=== PATIENT | female | born 1945 | race Caucasian/White ===

== ENCOUNTER 2016-09-17 17:02 | Inpatient (IN) | payer OTHER, MEDICARE ==
[~2016-09-17] VITALS: Ht 167.6 cm; Wt 77.0 kg
[2016-09-19] MEDS ORDERED: ARTH650T PO (15:55)
[2016-09-19] MEDS ORDERED: M2 M100C PO (15:55)
[2016-09-19] MEDS ORDERED: GLUC1CAP16 PO (15:55)
[2016-09-23] MEDS: CHLORHEXIDINE GLUCONATE 4% SOLN 120 ML BTL TOPICAL SCH (06:15)
[2016-09-23] MEDS ORDERED: VANCOMYCIN 1000 MG/NS 250 ML (for <70 kg) IV SCH ×2 (06:15)
[2016-09-23] MEDS ORDERED: TRANEXAMIC PERI-ARTICULAR 3,000 MG/NS 100 ML P-ARTICULR SCH ×2 (06:15)
[2016-09-23] MEDS ORDERED: TRANEXAMIC ACID IV SCH ×2 (06:15)
[2016-09-23] MEDS ORDERED: DEXAMETHASONE SOD PHOS 20 MG/5 ML VIAL IV PRN (06:15)
[2016-09-23] MEDS ORDERED: ROPIVACAINE PERI-ARTICULAR INJECTION. P-ARTICULR SCH ×5 (06:15)
[2016-09-23] MEDS ORDERED: ceFAZolin 2 GM PREMIX 50 ML IV SCH (06:15)
[2016-09-23] MEDS: POVIDONE IODINE 7.5% SCRUB 118 ML BOTTLE TOPICAL SCH (06:15)
[2016-09-23] MEDS ORDERED: SODIUM CHLORID 0.9% 500 ML IV PRN (06:30)
[2016-09-23] MEDS ORDERED: INSULIN HUMAN REGULAR 1,000 UNITS/10 ML VIAL SQ PRN (06:30)
[2016-09-23] MEDS ORDERED: METOPROLOL TARTRATE 25 MG TAB PO PRN (06:30)
[2016-09-23] MEDS ORDERED: LACTATED RINGER'S 1000 ML IV PRN (06:30)
[2016-09-23] MEDS ORDERED: ZOLPIDEM TARTRATE 5 MG TAB PO PRN (06:45)
[2016-09-23] MEDS ORDERED: MORPHINE SULFATE 4 MG/ML INJ IV PUSH PRN (06:45)
[2016-09-23] MEDS ORDERED: diphenhydrAMINE HCL 50 MG/ML VIAL IV PRN (06:45)
[2016-09-23] MEDS ORDERED: ALUMINUM/MAGNESIUM/SIMETH 30 ML CUP PO PRN (06:45)
[2016-09-23] MEDS ORDERED: Post-op Orders (for Pharmacy) MISC XX ONE (06:45)
[2016-09-23] MEDS ORDERED: BISACODYL 10 MG SUPP RECTAL PRN (06:45)
[2016-09-23] MEDS ORDERED: NALOXONE HCL 0.4 MG/ML AMP IV PRN (06:45)
[2016-09-23] MEDS ORDERED: ENOX40P SQ (06:47)
[2016-09-23] MEDS ORDERED: HYDR-3288 PO (06:47)
[2016-09-23] MEDS ORDERED: ASPI81CH37 CHEW (06:48)
[2016-09-23] MEDS ORDERED: ASPI81CH3 CHEW (06:50)
[2016-09-23] MEDS: POVIDONE IODINE 5% (ANTISEPSIS KIT) 4 APPLICATIONS EACH NARE PRN ×2 (07:11→07:33)
[2016-09-23] MEDS: CHLORHEXIDINE GLUCONATE 2 % 1 PACK (2 CLOTHS) TOPICAL PRN ×2 (07:11→07:34)
[2016-09-23 07:27] VITALS: BP 127/69; PULSE 62; RESP 16; TEMP 98.7; O2SAT 99
[2016-09-23] MEDS ORDERED: ESSE250T PO (07:40)
[2016-09-23] MEDS: ROPIVACAINE PERI-ARTICULAR INJECTION. P-ARTICULR SCH ×10 (08:00→10:02)
[2016-09-23] MEDS: TRANEXAMIC PERI-ARTICULAR 3,000 MG/NS 100 ML P-ARTICULR SCH ×4 (08:00→10:00)
[2016-09-23] MEDS: TRANEXAMIC ACID IV SCH ×4 (08:00→08:59)
[2016-09-23] MEDS ORDERED: GENTAMICIN SULFATE 80 MG/2 ML VIAL ONE (08:14)
[2016-09-23] MEDS ORDERED: MIDAZOLAM HCL 2 MG/2 ML VIAL ONE ×2 (08:26→10:47)
[2016-09-23] MEDS ORDERED: FAMOTIDINE 20 MG/2 ML VIAL ONE (08:27)
[2016-09-23] MEDS ORDERED: SODIUM CHLORIDE 0.9% FLUSH 10 ML FLUSH IV FLUSH PRN (09:00)
[2016-09-23] MEDS: SODIUM CHLORIDE 0.9% FLUSH 10 ML FLUSH IV FLUSH SCH ×2 (09:00→22:26)
[2016-09-23] MEDS: SODIUM CHLOR 0.9% 1000 ML INJ 1,000 ML IV SCH ×2 (11:00→22:22)
--- NOTE | 2016-09-23 11:13 | MP ---
cc: DONALD ALEXANDER M.D. DATE OF SURGERY: 09/23/2016 PREOPERATIVE DIAGNOSIS Left knee osteoarthritis. POSTOPERATIVE DIAGNOSES Left knee osteoarthritis. PROCEDURE Left total knee arthroplasty. SURGEON Dr. Donald Alexander ACID SUPERVISOR Donald Mckenzie PA-C ANESTHESIA Spinal with a femoral nerve block. ESTIMATED BLOOD LOSS 50 cc. TOURNIQUET TIME 43 minutes at 250 mmHg. COMPLICATIONS None. IMPLANTS USED DePuy Attune size 5 posterior stabilized femoral component, size 5 rotating platform tibia baseplate, size 10 mm polyethylene tibial insert, size 38 mm patella. JUSTIFICATION The patient is a 71-year-old female with a history of severe end-stage osteoarthritis involving the left knee. She had severe disabling pain with standing, walking, ambulation, weightbearing activities and even severe pain at rest. She has failed greater than three months of nonoperative conservative treatment to include medication therapy injections, ambulatory assisted aids, home exercise program, activity modification and weight loss attempts. X-rays of the left knee revealed severe end-stage osteoarthritis, egez-ox-poan joint space narrowing, subchondral sclerosis, subchondral cysts, osteophyte formation and varus deformity. The patient was counseled as to the risks, benefits and alternatives to a total knee arthroplasty. The risks discussed include but are not limited to anesthesia, bleeding, infection, damage to nerves and blood vessels, pain, stiffness, failure of components, blood clots, pulmonary embolism and even . The patient's pain is severe. She favored the benefits over the risks and did wish to proceed with surgery. PROCEDURE IN DETAIL Written consent was obtained. The patient was identified by name, taken to the operating room and placed supine on the operating table. Spinal anesthesia was administered as well as a femoral nerve block. The patient was administered two grams of IV Ancef and one gram of IV vancomycin. A well-padded tourniquet was placed on the left thigh. The left lower extremity was prepped and draped using isopropyl alcohol, Hibiclens solution and ChloraPrep solution. After a timeout was performed an Esmarch bandage was used to exsanguinate the left lower extremity and tourniquet inflated to 250 mmHg. A longitudinal incision was made over the anterior aspect of the left knee. A medial parapatellar arthrotomy was performed. The patella was everted. A patellar resection guide was used to resect 9 mm of patella. The size 38 mm guide was placed. Three drill holes were placed and the 38 mm trial fit well. Attention was turned to the femur where an intramedullary guide mariluz was placed and 10 mm of distal femur was resected 5 degrees off the anatomic valgus axis alignment. An oscillating saw was used to perform the distal femoral cut. Attention was turned to the tibia where an extramedullary tibial guide was placed and the guide was set to remove 5 mm off the lowest portion of the medial tibial plateau. The tibial guide was pinned in place and the tibia cut was performed. A 5 mm spacer block showed full extension. Attention was turned back to the femur where an AP sizing block measured a size 5. The anterior reference 3 degree external rotation guide was used to pin a size [address] The anterior, posterior and chamfer cuts were performed. A size 5 PCL box guide was pinned in place and the PCL was box cut with an oscillating saw. The medial and lateral meniscus remnants were removed as well as bone and soft tissue debris from the posterior portion of the knee. A size 5 tibia baseplate was pinned in place. The tibia was drilled and punched. The trial components were evaluated and the final components cemented in place. With the 10 mm polyethylene tibial insert the leg could achieve full extension to 0 degrees and flexion to 140. There was no evidence of tibial lift-off. Varus-valgus balance appeared appropriate and symmetric and the patella was noted to track centrally. The tourniquet was deflated. Bovie cautery was used for hemostasis. The surgical wound was thoroughly irrigated with sterile saline pulse lavage antibiotic-impregnated solution. The arthrotomy incision was closed with #1 Vicryl suture, the subcutaneous layer with 2-0 Vicryl suture, and the skin was closed with Dermabond. Sterile dressing was applied. The patient tolerated the procedure well. No intraoperative complications were noted. Donald Mckenzie, physician assistant professor of marine biology certified, was present during the entire procedure to include patient positioning and the procedure itself. The medical necessity of a physician assistant professor of marine biology was indicated in this case due to the complexity of the procedure. He assisted with appropriate manipulation of the leg and also traction of muscle, tendon, bone and neurovascular structures. He assisted with both preparation of bone cuts and also implantation of the prosthetic replacement. MD DUYEN Castillo/STEPHON /10:26 AM /10:55 AM
--- NOTE | 2016-09-23 11:25 | RADRPT ---
EXAM DATE/TIME: 09/23/2016 11:49 [facility] COMPARISON: No previous studies available for comparison. INDICATIONS : Post-op left knee. MEDICAL HISTORY : None. SURGICAL HISTORY : Total knee replacement, right. ENCOUNTER: Initial ACUITY: 1 day PAIN SCORE: Non-responsive. LOCATION: Left Knee FINDINGS: The patient is status post left total knee replacement. Prosthesis appears to be in good position. There is no fracture or dislocation. CONCLUSION: 1. Status post left total knee replacement with prosthesis in good position. 2. No acute fracture or dislocation. Jacob Martino MD on September 23, 2016 at 11:15 Board Certified Radiologist. This report was verified electronically.
[2016-09-23] MEDS ORDERED: PROPOFOL 200 MG/20 ML AMP IV ONE (12:00)
[2016-09-23] MEDS ORDERED: LACTATED RINGER'S 1000 ML INJ 1,000 ML IV ONE (12:00)
--- NOTE | 2016-09-23 12:04 | PD.CONS ---
HPI Service [facility] Consult Requested By Reason for Consult medical management Primary Care Physician Rupesh Ortiz MD Diagnoses: History of Present Illness patient is a 71 y/o female with history of osteoarthritis who underwent left total knee arthroplasty today. at the time of my evaluation she was resting comfortably with no distress. pain was minimal to mild at the time of my evaluation. she denies any other complaints including chest pain, sob or dizziness. Review of Systems Constitutional: DENIES: Fever, Weight loss, Chills, Night Sweats Eyes: DENIES: Blurred vision, Diplopia, Vision loss, Double Vision Ears, nose, mouth, throat: DENIES: Tinnitus, Vertigo, Throat pain, Epistaxis Respiratory: DENIES: Apneas, Cough, Snoring, Wheezing, Hemoptysis, Sputum production, Shortness of breath Cardiovascular: DENIES: Chest pain, Palpitations, Syncope, Dyspnea on Exertion , PND, Lower Extremity Edema, Orthopnea, Claudication Gastrointestinal: DENIES: Abdominal pain, Black stools, Bloody stools, Constipation, Diarrhea, Nausea, Vomiting, Difficulty Swallowing, Anorexia Genitourinary: DENIES: Urinary frequency, Urgency, Hematuria, Dysuria Musculoskeletal: COMPLAINS OF: Joint pain (left knee), DENIES: Muscle aches, Stiffness, Joint Swelling Integumentary: DENIES: Rash Neurologic: DENIES: Abnormal gait, Headache, Localized weakness, Paresthesias, Seizures, Speech Problems, Tremor, Poor Balance Psychiatric: DENIES: Anxiety, Confusion, Mood changes, Depression, Hallucinations, Agitation, Suicidal Ideation, Homicidal Ideation, Delusions Past Family Social History Allergies: Coded Allergies: Amoxicillin (Verified Allergy, Severe, RASH, 09/23/16) Past Medical History osteoarthritis Past Surgical History cholecystectomy Reported Medications tylenol Active Ordered Medications Current Medications Povidone Iodine (Betadine 7.5% Scrub) 1 applic ONCE TOPICAL Last administered on 09/23/16t 06:15; Start 09/23/16 at 06:15; Stop 09/26/16 at 06:14 Chlorhexidine Gluconate 1 applic 1 applic ONCE TOPICAL ; Start 09/23/16 at 06:15 ; Stop 09/26/16 at 06:14 Cefazolin Sodium/ Dextrose 50 ml @ 100 mls/hr RENAL DIETITIAN IV Last administered on 09/23/16t 07:36; Start 09/23/16 at 06:15; Stop 09/26/16 at 06:14 Vancomycin HCl 1000 mg/Sodium Chloride 250 ml @ 250 mls/hr RENAL DIETITIAN IV Last administered on 09/23/16 07:48; Start 09/23/16 at 06:15; Stop 09/26/16 at 06:14 Tranexamic Acid 1100 mg/Sodium Chloride 111 ml @ 200 mls/hr ONCE IV ; Start at 06:15; Stop 09/23/16 at 06:19; Status DC Ropivacaine 24.63 ml/Ketorolac Tromethamine 30 mg/Epinephrine HCl 0.5 mg/ Clonidine 80 mcg/ Sodium Chloride 100 ml @ 200 mls/hr ONCE P-ARTICULR ; Start 09/23/16 at 06:15; Stop 09/23/16 at 06:21; Status DC Tranexamic Acid/ Sodium Chloride (Cyklokapron Inj/ NS Inj) 130 ml @ 260 mls/hr ONCE P-ARTICULR ; Start 09/23/16 at 06:15; Stop 09/23/16 at 06:20; Status DC Dexamethasone Sodium Phosphate 10 mg 10 mg RENAL DIETITIAN PRN IV GIVE IN OR HOLDING Last administered on 09/23/16 07:33; Start 09/23/16 at 06:15; Stop 09/25/16 at 06:14 Tranexamic Acid 1100 mg/Sodium Chloride 111 ml @ 200 mls/hr ONCE IV Last administered on 09/23/16 08:59; Start 09/23/16 at 08:00; Stop 09/23/16 at 16:00 Tranexamic Acid 3000 mg/Sodium Chloride 130 ml @ 260 mls/hr ONCE P-ARTICULR Last administered on 09/23/16 10:00; Start 09/23/16 at 08:00; Stop 09/23/16 at 17:00 Ropivacaine 24.63 ml/Ketorolac Tromethamine 30 mg/Epinephrine HCl 0.5 mg/ Clonidine 80 mcg/ Sodium Chloride 100 ml @ 200 mls/hr ONCE P-ARTICULR Last administered on 09/23/16 10:02; Start 09/23/16 at 08:00; Stop 09/23/16 at 17:00 Lactated Ringer's 1,000 ml @ 30 mls/hr Q24H PRN IV SEE LABEL COMMENTS Last administered on 09/23/16 07:25; Start 09/23/16 at 06:30; Stop 09/23/16 at 10:26 ; Status DC Sodium Chloride (NS 500 ml Inj) 500 ml @ 30 mls/hr [id number] PRN IV SEE LABEL COMMENTS; Start 09/23/16 at 06:30; Stop 09/23/16 at 10:26; Status DC Povidone Iodine (Betadine 5% Antisepsis Kit) 1 applic RENAL DIETITIAN PRN EACH NARE SEE LABEL COMMENTS Last administered on 09/23/16 07:33; Start 09/23/16 at 06:30 ; Stop 09/26/16 at 06:29 Chlorhexidine Gluconate (Chlorhexidine 2% Cloth) 3 pack RENAL DIETITIAN PRN TOPICAL SEE LABEL COMMENTS Last administered on 09/23/16 07:34; Start 09/23/16 at 06:30 ; Stop 09/26/16 at 06:29 Insulin Human Regular (NovoLIN R INJ) See Protocol Table ... RENAL DIETITIAN PRN SQ SEE PROTOCOL TABLE; Start 09/23/16 at 06:30; Stop 09/26/16 at 06:29 Metoprolol Tartrate 25 mg 25 mg RENAL DIETITIAN PRN PO SEE LABEL COMMENTS; Start at 06:30; Stop 09/26/16 at 06:29 Sodium Chloride (NS 1000 ml Inj) 1,000 ml @ 100 mls/hr Q10H IV Last administered on 09/23/16 11:00; Start 09/23/16 at 09:00 Sodium Chloride (NS Flush) 2 ml UNSCH PRN IV FLUSH FLUSH AFTER USING IV ACCESS ; Start 09/23/16 at 09:00 Sodium Chloride 2 ml 2 ml BID IV FLUSH ; Start 09/23/16 at 09:00 Clindamycin Phosphate/Sodium Chloride (Cleocin Inj/NS Inj) 106 ml @ 212 mls/hr Q8H IV ; Start 09/23/16 at 06:45; Stop 09/23/16 at 23:14; Status UNV Miscellaneous Information (Post-op Orders (for Pharmacy)) STAT ONCE XX ; Start 09/23/16 at 06:45; Stop 09/23/16 at 09:21; Status DC Enoxaparin Sodium (Lovenox Inj) 40 mg Q24H SQ ; Start 09/23/16 at 06:45; Stop at 06:46; Status UNV Morphine Sulfate (Morphine Inj) 3 mg Q3H PRN IV PUSH Pain >7 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 off 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; Start 09/23/16 at 06:45 Acetaminophen/ Hydrocodone Bitart ([place] 7.5-325 Mg) 1 tab Q4H PRN PO PAIN LESS THAN 5 ON SCALE; Start 09/23/16 at 06:45 Acetaminophen/ Hydrocodone Bitart ([place] 7.5-325 Mg) 2 tab Q4H PRN PO PAIN SCALE 5 TO 10; Start 09/23/16 at 06:45 Multivitamins/ Minerals Therapeutic (Theragran M Tab) 1 tab BID PO ; Start 09/24 at 21:00; Stop 11/23/16 at 20:59 Ondansetron HCl (Zofran Inj) 4 mg Q6H PRN IVP NAUSEA OR VOMITING; Start at 06:45 Docusate Sodium (Colace) 100 mg BID PO ; Start 09/24/16 at 21:00 Al Hydrox/Mg Hydrox/Simethicone (Mag-Al Plus Susp Liq) 30 ml Q6H PRN PO INDIGESTION; Start 09/23/16 at 06:45 Zolpidem Tartrate (Ambien) 5 mg HS PRN PO SLEEP; Start 09/23/16 at 06:45 Bisacodyl (Dulcolax Supp) 10 mg DAILY PRN RECTAL CONSTIPATION; Start 09/23/16 at 06:45 Naloxone HCl (Narcan Inj) 0.4 mg UNSCH PRN IV RESPIRATORY RATE LESS THAN 10; Start 09/23/16 at 06:45 Diphenhydramine HCl (Benadryl Inj) 25 mg Q6H PRN IV ITCHING; Start 09/23/16 at 06:45 Gentamicin Sulfate (Gentamicin Inj) 240 mg STK-MED ONCE .ROUTE Last administered on 09/23/16 09:17; Start 09/23/16 at 08:14; Stop 09/23/16 at 08:15 ; Status DC Midazolam HCl (Versed Inj) 2 mg STK-MED ONCE .ROUTE Last administered on 08:28; Start 09/23/16 at 08:26; Stop 09/23/16 at 08:27; Status DC Famotidine (Pepcid Inj) 20 mg STK-MED ONCE .ROUTE Last administered on t 08:28; Start 09/23/16 at 08:27; Stop 09/23/16 at 08:28; Status DC Midazolam HCl (Versed Inj) 2 mg STK-MED ONCE .ROUTE ; Start 09/23/16 at 10:47; Stop 09/23/16 at 10:48; Status DC Fentanyl Citrate (fentaNYL INJ) 100 mcg STK-MED ONCE .ROUTE ; Start 09/23/16 at 10:47; Stop 09/23/16 at 10:48; Status DC Family History not relevant to this consult. Social History no smoking or drinking. Physical Exam Vital Signs Vital Signs Date Time Temp Pulse Resp B/P Pulse Ox O2 Delivery O2 Flow Rate FiO2 09/23/16 11:30 57 13 113/62 98 09/23/16 11:15 59 16 123/70 99 09/23/16 11:00 63 11 115/62 100 09/23/16 10:45 70 11 112/58 100 09/23/16 10:39 97.4 74 12 109/56 100 Simple Mask 6 09/23/16 07:27 98.7 62 16 127/69 99 Physical Exam GENERAL: This is a well-nourished, well-developed patient, in no apparent distress. SKIN: No rashes, ecchymoses or lesions. Cool and dry. HEAD: Atraumatic. Normocephalic. No temporal or scalp tenderness. EYES: Pupils equal round and reactive. Extraocular motions intact. No scleral icterus. No injection or drainage. ENT: Nose without bleeding, purulent drainage or septal hematoma. Throat without erythema, tonsillar hypertrophy or exudate. Uvula midline. Airway patent. NECK: Trachea midline. No JVD or lymphadenopathy. Supple, nontender, no meningeal signs. CARDIOVASCULAR: Regular rate and rhythm without murmurs, gallops, or rubs. RESPIRATORY: Clear to auscultation. Breath sounds equal bilaterally. No wheezes , rales, or rhonchi. GASTROINTESTINAL: Abdomen soft, non-tender, nondistended. No hepato-splenomegaly , or palpable masses. No guarding. MUSCULOSKELETAL:left leg/knee covered with clean dressing. NEUROLOGICAL: Awake and alert. Cranial nerves II through XII intact. Motor and sensory grossly within normal limits. Five out of 5 muscle strength in all muscle groups. Normal speech. Laboratory Laboratory Tests Test 09/23/16 07:30 Blood Type O POSITIVE Antibody Screen NEGATIVE Blood Bank Comment Assessment and Plan Assessment and Plan A/P - osteoarthritis of the left knee- s/p left total knee arthroplasty continue pain control and PT- management per ortho -DVT prophylaxis with lovenox per ortho. thank you for the consult. Discussed Condition With the patient and RN. Robbie Hairston MD Sep 23, 2016 12:03
--- NOTE | 2016-09-23 13:03 | HHI.DCPOC ---
Discharge Care Plan Diagnosis: (1) Primary localized osteoarthrosis, lower leg Your Health Problems Are: Difficulty with ADL Goals to Promote Your Health * To prevent worsening of your condition and complications * To maintain your health at the optimal level Directions to Meet Your Goals Take your medications as prescribed Follow your dietary instruction Follow activity as directed Keep your appointments as scheduled Take your immunizations and boosters as scheduled If your symptoms worsen call your PCP, if no PCP go to Urgent Care Center or Emergency Room Smoking is Dangerous to Your Health. Avoid second hand smoke Call the 24-hour hour crisis hotline for domestic abuse at Aleksandar Mckenzie Sep 23, 2016 13:03
--- NOTE | 2016-09-23 13:04 | HHI.FF ---
Face to Face Verification Diagnosis: (1) Primary localized osteoarthrosis, lower leg Physical Therapy Gait training, Safety evaluation, Transfer training, bed to chair Knee: Total knee, Protocol: Right Right LE Weight Bearing: WB as tolerated Nursing RN: 3 days/week x 2 weeks Nursing: [place] teaching, Dressing changes I have seen patient Flavia Berrios on 09/23/16. My clinical findings support the need for the requested home health care services because: Limited ability to care for self High risk of falls I certify that my clinical findings support that this patient is homebound because: Post-op weakness Unsteady gait/balance Aleksandar Mckenzie Sep 23, 2016 13:04
[2016-09-23 14:38] VITALS: BP 113/56; PULSE 54; RESP 16; TEMP 96.1; O2SAT 97
[2016-09-23] MEDS: ACETAMINOPHEN/HYDROcodone 325 MG/7.5 MG TAB PO PRN ×2 (17:31→22:36)
[2016-09-23 20:18] VITALS: O2SAT 98
[2016-09-23] MEDS: ONDANSETRON HCL 4 MG/2 ML VIAL IVP PRN (20:47)
[2016-09-23 21:00] VITALS: BP 100/54; PULSE 70; RESP 16; TEMP 96.5; O2SAT 96
[2016-09-23] MEDS: CLINDAMYCIN INJ 900 MG in SODIUM CHLORIDE 0.9% INJ 100 ML IV SCH (22:21)
[2016-09-24] VITALS (9 sets, daily range): BP systolic 109–137; BP diastolic 56–63; PULSE 61–75; RESP 16–17; TEMP 95.6–97.7; O2SAT 94–98
[2016-09-24] MEDS: SODIUM CHLOR 0.9% 1000 ML INJ 1,000 ML IV SCH ×2 (05:00→15:00)
[2016-09-24] MEDS: CLINDAMYCIN INJ 900 MG in SODIUM CHLORIDE 0.9% INJ 100 ML IV SCH ×2 (06:00→13:05)
[2016-09-24] MEDS: POVIDONE IODINE 7.5% SCRUB 118 ML BOTTLE TOPICAL SCH ×2 (06:15→20:19)
[2016-09-24] MEDS: CHLORHEXIDINE GLUCONATE 4% SOLN 120 ML BTL TOPICAL SCH ×2 (06:15→20:19)
[2016-09-24 07:18] LABS: HEMATOCRIT 32.4 % (35.0-46.0); MEAN CELL VOLUME 88.4 FL (80.0-100.0); MEAN CORPUSCULAR HEMOGLOBIN 30.5 PG (27.0-34.0); MEAN CORPUSCULAR HGB CONC 34.5 % (32.0-36.0); PLATELET COUNT 221 TH/MM3 (150-450); RED BLOOD COUNT 3.66 MIL/MM3 (4.00-5.30); RED CELL DISTRIBUTION WIDTH 13.2 % (11.6-17.2); REVIEW FLAG FINAL; WHITE BLOOD COUNT 10.8 TH/MM3 (4.0-11.0)
[2016-09-24 07:45] LABS: BICARBONATE 26.8 MEQ/L (21.0-32.0); POTASSIUM 4.3 MEQ/L (3.5-5.1)
--- NOTE | 2016-09-24 08:14 | PD.ORT.PN ---
Subjective Post Op Day #: 1 Subjective Remarks pain tolerable. denies cp and sob. Objective Vitals Vital Signs Date Time Temp Pulse Resp B/P Pulse Ox O2 Delivery O2 Flow Rate FiO2 09/24/16 07:25 95.8 63 17 123/60 97 09/24/16 04:10 96.5 75 16 109/56 96 09/24/16 00:10 96.3 71 16 124/60 97 09/23/16 21:00 96.5 70 16 100/54 96 09/23/16 20:18 98 21 09/23/16 19:13 Room Air 09/23/16 14:38 96.1 54 16 113/56 97 09/23/16 13:30 97.9 57 14 111/59 98 Room Air 09/23/16 13:15 55 12 119/60 98 09/23/16 13:00 53 12 120/60 98 09/23/16 12:45 55 14 115/64 98 09/23/16 12:30 57 14 109/62 98 09/23/16 12:15 55 12 123/64 97 09/23/16 12:00 54 14 110/62 98 09/23/16 11:45 54 13 116/63 99 09/23/16 11:30 57 13 113/62 98 09/23/16 11:15 59 16 123/70 99 09/23/16 11:00 63 11 115/62 100 09/23/16 10:45 70 11 112/58 100 09/23/16 10:39 97.4 74 12 109/56 100 Simple Mask 6 I/O 09/23/16 09/23/16 09/23/16 09/24/16 09/24/16 09/24/16 07:00 15:00 23:00 07:00 15:00 23:00 Intake Total 2380 ml 60 ml 887 ml Output Total 1700 ml 1050 ml 550 ml Balance 680 ml -990 ml 337 ml Intake Oral 480 ml 60 ml IV Total 887 ml Other 1900 ml Output Urine Total 700 ml 1050 ml 550 ml Estimated Blood Loss 200 ml Other 800 ml # Voids 0 0 # Bowel Movements 0 0 Result Diagram: 09/24/1637 09/24/16636 Objective Remarks in bed, nad incision no erythema, no drainage neg homans nvi Assessment & Plan Ortho Post Op Day #: 1 Problem List: Assessment and Plan s/p L TKA wbat daily dressing changes lovenox d/c planning to snf rx in chart [id number] signed f/up dr. ga 2 weeks Aleksandar Mckenzie Sep 24, 2016 08:14
[2016-09-24] MEDS ORDERED: COMMODE 3-IN-11 MIS (08:17)
[2016-09-24] MEDS ORDERED: CPMMACHINE (08:17)
[2016-09-24] MEDS ORDERED: WALKER WHEELS/F1 MIS (08:17)
[2016-09-24] MEDS: BISACODYL EC 5 MG TABEC PO SCH ×2 (08:51→20:19)
[2016-09-24] MEDS: MAGNESIUM HYDROXIDE SUSP 30 ML CUP PO SCH ×2 (08:51→20:19)
[2016-09-24] MEDS: ENOXAPARIN SODIUM 40 MG/0.4 ML SYRINGE SQ SCH (08:52)
[2016-09-24] MEDS: ACETAMINOPHEN/HYDROcodone 325 MG/7.5 MG TAB PO PRN ×4 (08:56→23:40)
[2016-09-24] MEDS: SODIUM CHLORIDE 0.9% FLUSH 10 ML FLUSH IV FLUSH SCH ×2 (09:00→20:10)
[2016-09-24] MEDS: ONDANSETRON HCL 4 MG/2 ML VIAL IVP PRN ×2 (14:41→23:40)
--- NOTE | 2016-09-24 19:33 | HHI.PR ---
Addendum to Inpatient Note Addendum Reason: Additional Documentation Additional Information VSS. medically stable, cleared for DC by hospitalist Malini Freitas MD Sep 24, 2016 19:33
[2016-09-24] MEDS ORDERED: PROCHLORPERAZINE INJ 10 MG/2 ML VIAL IM PRN (19:45)
[2016-09-24] MEDS ORDERED: ONDANSETRON HCL 4 MG/2 ML VIAL IV PUSH ONE (20:00)
[2016-09-24] MEDS: MULTIVITAMINS/MINERALS THERAPEUTIC TAB PO SCH (20:09)
[2016-09-24] MEDS: DOCUSATE SODIUM 100 MG CAP PO SCH (20:19)
[2016-09-25] MEDS ORDERED: CYCLOBENZAPRINE HCL 10 MG TAB PO ONE
[2016-09-25] MEDS: SODIUM CHLOR 0.9% 1000 ML INJ 1,000 ML IV SCH ×3 (01:00→21:00)
[2016-09-25] MEDS: ACETAMINOPHEN/HYDROcodone 325 MG/7.5 MG TAB PO PRN ×5 (03:51→22:54)
[2016-09-25] MEDS: ONDANSETRON HCL 4 MG/2 ML VIAL IVP PRN (03:51)
--- NOTE | 2016-09-25 07:55 | PD.ORT.PN ---
Subjective Post Op Day #: 2 Subjective Remarks pain tolerable. denies cp and sob. had n/v yesterday. Objective Vitals Vital Signs Date Time Temp Pulse Resp B/P Pulse Ox O2 Delivery O2 Flow Rate FiO2 09/24/16 23:45 97.7 75 17 117/58 97 09/24/16 19:01 97.7 65 16 137/63 97 09/24/16 18:40 Room Air 09/24/16 18:03 98 21 09/24/16 15:52 95.6 61 17 115/57 98 09/24/16 11:38 95.7 69 17 123/58 97 09/24/16 08:00 94 21 I/O 09/24/16 09/24/16 09/24/16 09/25/16 09/25/16 09/25/16 07:00 15:00 23:00 07:00 15:00 23:00 Intake Total 887 ml 480 ml 720 ml 240 ml Output Total 550 ml 200 ml Balance 337 ml 280 ml 720 ml 240 ml Intake Oral 480 ml 720 ml 240 ml IV Total 887 ml Output Urine Total 550 ml 200 ml # Voids 3 2 # Bowel Movements 0 0 0 Result Diagram: 09/24/16 0637 09/24/16 0637 Objective Remarks in bed, nad dressing c/d/i neg homans nvi Assessment & Plan Ortho Post Op Day #: 2 Problem List: Assessment and Plan s/p L TKA wbat daily dressing changes lovenox phenergan d/c planning to snf - cleared when authorized by insurance rx in chart [id number] signed f/up dr. ga 2 weeks Aleksandar Mckenzie Sep 25, 2016 07:55
[2016-09-25 08:00] VITALS: BP 111/45; PULSE 70; RESP 20; TEMP 97.5; O2SAT 98
[2016-09-25 08:08] LABS: HEMATOCRIT 32.9 % (35.0-46.0); MEAN CELL VOLUME 89.3 FL (80.0-100.0); MEAN CORPUSCULAR HEMOGLOBIN 29.8 PG (27.0-34.0); MEAN CORPUSCULAR HGB CONC 33.3 % (32.0-36.0); PLATELET COUNT 190 TH/MM3 (150-450); RED BLOOD COUNT 3.69 MIL/MM3 (4.00-5.30); RED CELL DISTRIBUTION WIDTH 13.3 % (11.6-17.2); REVIEW FLAG FINAL; WHITE BLOOD COUNT 7.4 TH/MM3 (4.0-11.0)
[2016-09-25] MEDS: MULTIVITAMINS/MINERALS THERAPEUTIC TAB PO SCH ×2 (08:13→21:01)
[2016-09-25 08:35] LABS: BICARBONATE 28.3 MEQ/L (21.0-32.0); POTASSIUM 3.7 MEQ/L (3.5-5.1)
[2016-09-25] MEDS: BISACODYL EC 5 MG TABEC PO SCH ×2 (09:00→21:00)
[2016-09-25] MEDS: MAGNESIUM HYDROXIDE SUSP 30 ML CUP PO SCH ×2 (09:00→21:00)
[2016-09-25] MEDS: SODIUM CHLORIDE 0.9% FLUSH 10 ML FLUSH IV FLUSH SCH ×2 (09:00→21:02)
[2016-09-25] MEDS: DOCUSATE SODIUM 100 MG CAP PO SCH ×2 (09:00→21:01)
[2016-09-25] MEDS ORDERED: PROMETHAZINE HCL 25 MG TAB PO PRN (09:00)
[2016-09-25] MEDS: ENOXAPARIN SODIUM 40 MG/0.4 ML SYRINGE SQ SCH (10:54)
[2016-09-25 12:00] VITALS: BP 127/59; PULSE 75; RESP 20; TEMP 97.6; O2SAT 97
[2016-09-25 16:16] VITALS: BP 124/60; PULSE 82; RESP 16; TEMP 99.5
[2016-09-25 19:37] VITALS: BP 141/65; PULSE 89; RESP 16; TEMP 99.1; O2SAT 95
[2016-09-25 23:13] VITALS: BP 148/74; PULSE 80; RESP 17; TEMP 99.3; O2SAT 97
[2016-09-26 04:10] VITALS: BP 157/67; PULSE 87; RESP 17; TEMP 97; O2SAT 98
[2016-09-26] MEDS: ACETAMINOPHEN/HYDROcodone 325 MG/7.5 MG TAB PO PRN ×4 (06:14→20:28)
[2016-09-26 06:19] LABS: HEMATOCRIT 33.1 % (35.0-46.0); MEAN CELL VOLUME 88.6 FL (80.0-100.0); MEAN CORPUSCULAR HEMOGLOBIN 30.3 PG (27.0-34.0); MEAN CORPUSCULAR HGB CONC 34.2 % (32.0-36.0); PLATELET COUNT 197 TH/MM3 (150-450); RED BLOOD COUNT 3.74 MIL/MM3 (4.00-5.30); RED CELL DISTRIBUTION WIDTH 13.3 % (11.6-17.2); REVIEW FLAG FINAL; WHITE BLOOD COUNT 7.6 TH/MM3 (4.0-11.0)
[2016-09-26 06:39] LABS: BICARBONATE 29.9 MEQ/L (21.0-32.0); POTASSIUM 4.1 MEQ/L (3.5-5.1)
[2016-09-26] MEDS: SODIUM CHLOR 0.9% 1000 ML INJ 1,000 ML IV SCH ×2 (07:00→17:00)
[2016-09-26 08:00] VITALS: BP 121/62; PULSE 91; RESP 20; TEMP 97.2; O2SAT 95
[2016-09-26] MEDS: MAGNESIUM HYDROXIDE SUSP 30 ML CUP PO SCH ×2 (09:00→20:30)
[2016-09-26] MEDS: SODIUM CHLORIDE 0.9% FLUSH 10 ML FLUSH IV FLUSH SCH ×2 (09:00→20:30)
[2016-09-26] MEDS: BISACODYL EC 5 MG TABEC PO SCH ×2 (09:00→20:30)
[2016-09-26] MEDS: MULTIVITAMINS/MINERALS THERAPEUTIC TAB PO SCH ×2 (09:15→20:27)
[2016-09-26] MEDS: DOCUSATE SODIUM 100 MG CAP PO SCH ×2 (09:15→20:27)
[2016-09-26] MEDS: ENOXAPARIN SODIUM 40 MG/0.4 ML SYRINGE SQ SCH (09:15)
[2016-09-26 12:00] VITALS: BP 130/73; PULSE 78; RESP 16; TEMP 97.6; O2SAT 97
--- NOTE | 2016-09-26 12:28 | PD.ORT.PN ---
Subjective Post Op Day #: 3 Subjective Remarks pain tolerable. denies cp and sob. still feeling weak with nausea. [facility] has denied snf placement so far. patient has appealed. she will be home alone during the day. Objective Vitals Vital Signs Date Time Temp Pulse Resp B/P Pulse Ox O2 Delivery O2 Flow Rate FiO2 09/26/16 08:00 97.2 91 20 121/62 95 09/26/16 04:10 97.0 87 17 157/67 98 09/25/16 23:13 99.3 80 17 148/74 97 09/25/16 19:37 99.1 89 16 141/65 95 09/25/16 16:16 99.5 82 16 124/60 09/25/16 15:16 20 I/O 09/25/16 09/25/16 09/25/16 09/26/16 09/26/16 09/26/16 07:00 15:00 23:00 07:00 15:00 23:00 Intake Total 240 ml 240 ml 120 ml Balance 240 ml 240 ml 120 ml Intake Oral 240 ml 240 ml 120 ml # Voids 5 1 1 # Bowel Movements 1 1 0 0 Result Diagram: 09/26/16 0547 09/26/16 0547 Objective Remarks in bed, nad dressing c/d/i neg homans nvi Assessment & Plan Ortho Post Op Day #: 3 Problem List: Assessment and Plan s/p L TKA wbat daily dressing changes lovenox phenergan d/c planning to snf - cleared when authorized by insurance patient weak and having intermittent nausea. would benefit from snf placement. home alone during day. rx in chart [id number] signed f/up dr. ga 2 weeks Aleksandar Mckenzie Sep 26, 2016 12:28
[2016-09-26 16:00] VITALS: BP 142/83; PULSE 105; RESP 20; TEMP 97.3; O2SAT 96
[2016-09-26 21:15] VITALS: BP 136/64; PULSE 98; RESP 16; TEMP 100.6; O2SAT 94
[2016-09-26 23:30] VITALS: BP 127/59; PULSE 93; RESP 17; TEMP 99.5; O2SAT 94
[2016-09-27] MEDS: ACETAMINOPHEN/HYDROcodone 325 MG/7.5 MG TAB PO PRN ×2 (02:33→08:14)
[2016-09-27] MEDS: ONDANSETRON HCL 4 MG/2 ML VIAL IVP PRN (02:34)
[2016-09-27] MEDS: SODIUM CHLOR 0.9% 1000 ML INJ 1,000 ML IV SCH (02:38)
[2016-09-27 05:10] VITALS: BP 110/60; PULSE 88; RESP 16; TEMP 98.3; O2SAT 94
[2016-09-27 08:00] VITALS: BP 107/69; PULSE 97; RESP 16; TEMP 97.4; O2SAT 96
[2016-09-27] MEDS: DOCUSATE SODIUM 100 MG CAP PO SCH (08:12)
[2016-09-27] MEDS: BISACODYL EC 5 MG TABEC PO SCH (08:13)
[2016-09-27] MEDS: MULTIVITAMINS/MINERALS THERAPEUTIC TAB PO SCH (08:13)
[2016-09-27] MEDS: SODIUM CHLORIDE 0.9% FLUSH 10 ML FLUSH IV FLUSH SCH (08:13)
[2016-09-27] MEDS: MAGNESIUM HYDROXIDE SUSP 30 ML CUP PO SCH (08:13)
[2016-09-27] MEDS: ENOXAPARIN SODIUM 40 MG/0.4 ML SYRINGE SQ SCH (09:38)
--- NOTE | 2016-10-01 12:54 | MD ---
cc: DONALD ALEXANDER M.D. ADMISSION DATE: 09/23/2016 DISCHARGE DATE: 09/27/2016 ADMISSION DIAGNOSIS Severe degenerative osteoarthritis left knee DISCHARGE DIAGNOSIS Severe degenerative osteoarthritis left knee HISTORY OF PRESENT ILLNESS Mrs. Berrios is a 71-year-old female who presented to the [facility] for evaluation by Dr. Donald Alexander regarding her severe and progressive left knee pain. The patient states the pain has been bothering her for greater than one year duration and currently the pain is inhibiting her activities of daily living. She notes it is aggravated by weightbearing activity. She notes she has no alleviating factors at this point time, although in the past, she has tried medications, bracing, physical therapy, home exercise program and multiple injections without relief of symptoms. She does have x-ray evidence of severe degenerative osteoarthritis of the left knee. While in the office, the patient was counseled on her diagnosis and treatment options. The risks, benefits, indications of all were discussed in great detail. The patient did elect to proceed with surgical intervention to include a left total knee arthroplasty. Date of surgery 09/23/2016, left total knee arthroplasty. Postop after surgery, the patient admitted to [facility] where she received appropriate medical management, pain control, DVT prophylaxis, as well as physical therapy. DISCHARGE Once being discharged from the hospital, the patient is cleared to go to a correction facility where she will receive physical therapy and appropriate medical management. She is in stable condition. She may weight-bear as tolerated. She is to receive daily dressing changes. The patient has been provided prescriptions for pain control, as well as DVT prophylaxis medication. She has also been provided a follow-up appointment to see Dr. Donald Alexander in the office in approximately two weeks from her date of surgery. The patient has asked appropriate questions which have been answered. The patient is cleared for discharge. MD DUYEN Castillo/ESTHER /8:01 AM /12:50 PM
== END 2016-09-27 10:44 | DRG 470 ==
LOC: HSDI 09-23 05:39 → N06A 09-23 13:59
PROVIDERS: ADMIT Orthopaedic Surgery Sports Medicine; ATTEND Orthopaedic Surgery Sports Medicine
PROC: 3E0T3CZ (ICD-10-PCS; 2016-09-23)
PROC: 0SRD0J9 Replacement of Left Knee Joint with Synthetic Substitute, Cemented, Open Approach (ICD-10-PCS; principal; 2016-09-23 08:30)
DX: M17.12 Unilateral primary osteoarthritis, left knee (principal); Z88.0 Allergy status to penicillin
CPT/HCPCS: 73560; 80048; 85027; 86850; 86900; 86901; 94150; C1776; J0171; J0690; J0735; J0780; J1100; J1580; J1650; J1885; J2250; J2405; J2795; J3010; J3370; J7030; J7050; J7120; L1830; Q0169